=== PATIENT | male | born 1975 | race Caucasian/White ===

== ENCOUNTER → 2019-09-01 07:02 | Outpatient (CLI) | payer MEDICARE, MEDICAID, SELFPAY ==
--- NOTE | 2019-09-01 | CA_ITS ---
APPROVED REPORT Exam: Exercise Treadmill Technologist: Mariely Virk Ht: 6 ft 2 in Wt: 276 lbs BSA: 2.49 m2 HR: 85 bpm BP: 144/103 mmHg Indications: Chest pain, HTN Medical History Medications: Omeprazole,,,,, Pravastatin,,,,, Lyrica,,,,, Zoloft,,,,, Tramadol,,,,, BuspAR,,,,, NiACIN,,,,, ZYprexa,,,,, Elavil,,,,, Stress Test Details Test: Sandeep HR Resting HR: 95 bpm Max Heart Rate (APMHR): 174 bpm Max HR Achieved: 164 bpm Target HR (85% APMHR): 147 bpm % of APMHR: 94 Recovery HR: 118 bpm BP Resting BP: 144.0/103.0 mmHg Max BP: 242.0/117.0 mmHg Recovery BP: 169.0/121.0 mmHg ECG Clinical Exercise duration: 06:00 min Highest Stage Achieved: Exercise capacity: 7.0 METs Stress ECG Conclusion Resting ECG: Normal sinus rhythm Patient exercised 6:00 on Sandeep Protocol. Test stopped due to shortness of air, leg fatigue. Symptoms: No chest pain Arrhythmias/Ectopy: Rare PVC ST-T Changes: Normal ST response to exercise Conclusion: No chest pain or ischemic EKG changes. High blood pressure (did not take blood pressure medication today). Myoview images reported separately. Test Summary REST . . . . . . . Sitting REST . . . . . . . Standing REST 03:24 0.0 0.0 95 . 144/103 . . Stage 1 01:00 10.0 1.7 118 . . . . Stage 1 02:00 10.0 1.7 130 . . . . Stage 1 03:00 10.0 1.7 138 . 196/100 . . Stage 2 01:00 12.0 2.5 146 . . . . Stage 2 . . . . . . . Myoview Injected Stage 2 02:00 12.0 2.5 155 . . . . Stage 2 03:00 12.0 2.5 160 . 195/106 . Stop exercise at 06:00 RECOVERY 01:00 0.0 0.0 159 . . . . RECOVERY 02:00 0.0 0.0 142 . . . . RECOVERY 03:00 0.0 0.0 129 . 242/117 . . RECOVERY 04:00 0.0 0.0 126 . 242/117 . . RECOVERY 05:00 0.0 0.0 118 . 220/115 . . RECOVERY 06:00 0.0 0.0 119 . 207/113 . . RECOVERY 07:00 0.0 0.0 118 . 207/113 . . RECOVERY 08:00 0.0 0.0 117 . 169/121 . . RECOVERY 09:00 0.0 0.0 119 . 188/116 . . RECOVERY 10:00 0.0 0.0 115 . 188/116 . . RECOVERY 11:00 0.0 0.0 117 . 188/116 . . RECOVERY 12:00 0.0 0.0 116 . 162/119 . . RECOVERY 13:00 0.0 0.0 116 . 162/119 . . RECOVERY 14:00 0.0 0.0 112 . 162/119 . . RECOVERY 15:00 0.0 0.0 115 . 162/119 . . RECOVERY 16:00 0.0 0.0 108 . 162/127 . . RECOVERY 17:00 0.0 0.0 115 . 140/ 90 . . RECOVERY 17:04 0.0 0.0 115 . 140/ 90 . . Electronically signed by : Saran Avalos, 09/01/2019 21:57:28
--- NOTE | 2019-09-01 07:33 | NM_ITS ---
APPROVED REPORT Exam: Nuclear Stress Test Indication: Chest pain, SOB, HTN, High cholesterol, Tobacco use, Family history Patient Location: Outpatient Stress Tech: Mariely Virk PA Tech:Gail Montalvo, ARRT, RT (R)(N) Ht: 6 ft 2 in Wt: 276 lbs HR: 85 bpm BP: 144/103 mmHg BSA: 2.49 m2 BMI: 35.4 History: Chest pain, SOB, HTN, High cholesterol, Tobacco use, Family history Procedure: Patient exercised on Sandeep protocol 6:00 minutes and sec, resting heart rate 85 bpm, resting blood pressure 144/103 mmHg, with exercise maximum heart rate achived was 164 bpm which is Greater than 85 % of the maximum predicted heart rate and blood pressure was 242/117 mmHg. Test was stopped due to SOA and leg fatigue. Patient denied any complaint of chest pain. Patient has Adequate exercise capacity, achieved 7.0 METs of workload on treadmill, the blood pressure response to exercise was Hypertensive. Electrocardiogram Resting electrocardiogram showed sinus rhythm, with exercise there is less than 1.[address] segment depression noted from the baseline EKG. The EKG portion of the exercise Myoview is negative for ischemia. Cardiac Stress and Resting SPECT Images: Cardiac Stress and Resting SPECT images were obtained using technetium 99m Myoview 32.6 mCi stress and 10.13 mCi at rest. Gated SPECT for analysis of segmental wall motion and calculation of the ejection fraction also done. Cardiac stress and resting SPECT images show uniform myocardial activity without segmental perfusion abnormality, computer derived ejection fraction is 57% with no regional wall motion abnormality, right ventricle is normal size and contractility. Conclusion: 1. The EKG portion of the exercise Myoview is negative for ischemia, patient has adequate exercise capacity achieved 7 mets of workload on treadmill, the blood pressure response to exercise was hypertensive, there was no exercise-induced chest discomfort. 2. No scintigraphic evidence of reversible ischemia seen at this level of exercise, computer derived ejection fraction 57% with no regional wall motion abnormality, right ventricle is normal size and contractility. 3. Normal exercise Myoview study except for hypertensive blood pressure response with exercise. Electronically signed by : Saran Avalos, 09/01/2019 22:00:02
== END ==
PROVIDERS: PCP Internal Medicine Adolescent Medicine; Visit Provider Internal Medicine Adolescent Medicine
DX: R07.9 Chest pain, unspecified (principal); I10 Essential (primary) hypertension
CPT/HCPCS: 78452; 93017; A9502

== ENCOUNTER 2020-04-20 16:07 | Emergency (ER) | payer MEDICARE, MEDICAID, SELFPAY ==
[2020-04-20 16:07] VITALS: BP 131/98; PULSE 114; RESP 18; TEMP 36.9; O2SAT 95; BMI 34.0
--- NOTE | 2020-04-20 16:13 | HMH.EDGENADL ---
ED Disposition Clinical Impression: Knee pain, right Qualifiers: Chronicity: acute Qualified Code(s): M25.561 - Pain in right knee Disposition: Home, Self-Care Condition on Discharge: Good Referrals: Yomi Jamison MD [Primary Care Provider] - - Critical Care Critical Care Time: No Attestation: On , the high probability of a clinically significant, sudden or life threatening deterioration of the following system(s) required my full and direct attention, intervention and personal management. The time I documented below is in addition to time spent performing reported procedures but includes the following listed in this critical care notation. Medical Decision Making - Medical Records Medical records reviewed: Yes: I reviewed the patient's medical records. - Jose Inquiry Pt receiving controlled substance: No Vital Signs: 04/20/20 16:07 Temperature 98.4 F Temperature Source Oral Pulse Rate [Right Radial] 114 H Respiratory Rate 18 Blood Pressure [Right Arm] 131/98 H Blood Pressure Mean [Right Arm] 109 Blood Pressure Source [Right Arm] Automatic Cuff Blood Pressure Position [Right Arm] Sitting 02 Sat by Pulse Oximetry 95 Oxygen Delivery Method Room Air Orders (Tests/Meds): ORDERS Category Date Time Status Knee XR right 3 views [XR knee RT 3V] Stat Exams 04/20/20 16:14 Taken - Radiology Data #1 Image(s): Knee Image Reviewed: Yes I reviewed the patient's radiology image No fracture, normal alignment. No acute process identified. Medical Decision Narrative: 44yo M evaluated for right knee pain. Patient is in no acute distress on initial presentation but does have difficulty with weightbearing. Differential diagnosis includes was not limited to: Severe arthritis, fracture, dislocation, meniscal injury, osteochondral defect, ligamentous rupture. Due to pain, the patient is unable to complete full exam. He is able to passively fully flex and fully extend the joint. Discussed with the patient he may have a meniscal tear that makes it difficult to range his joint at times. Patient be placed in a knee immobilizer and provided crutches. He is instructed to follow-up with his PCP versus orthopedics. He will need further imaging and evaluation. General Adult HPI - General Stated complaint: Knee pain Time Seen by Provider: 04/20/20 16:14 Mode of Arrival: Ambulatory Source of Information: Patient - History of Present Illness HPI narrative: 44yo M with past medical history significant for bad knees presents the emergency department with right knee pain. Patient reports his knee locked twice yesterday and popped. He states this is normal. However this time, he is unable to bear weight. He denies any previous trauma or significant injury to the right knee. He denies previous surgery. Denies any other signs or symptoms of acute illness. - Related Data Allergies Allergy/AdvReac Type Severity Reaction Status Date / Time ketorolac [From TORADOL] Allergy Mild I-RASH Unverified 02/26/17 15:10 [facility] History - Hepatitis A Screen Drug use history?: No Attestation statement:: This patient has been screened for Hepatitis A risk factors. I have reviewed the patient's past medical history: Yes Other Medical History: Reports: Arthritis ROS Obtained: Yes All systems reviewed & no additional complaints Physical Exam - General General appearance: alert, in no apparent distress - Head Head exam: atraumatic, normocephalic, normal inspection - Eye Eye exam: Present: normal appearance - Neck Neck exam: Present: normal inspection - Respiratory Respiratory exam: Present: normal lung sounds bilaterally - Cardiovascular Cardiovascular exam: Present: regular rate, normal rhythm. Absent: JVD - Abdominal Exam Abdominal exam: Present: soft, normal bowel sounds. Absent: distention, tenderness, guarding - Extremities Exam Extremities exam: Present: normal inspection, tende
--- NOTE | 2020-04-20 16:14 | XR_ITS ---
PROCEDURE: XR KNEE RT 3V CLINICAL INDICATION: pain COMPARISON: No exams were available for comparison FINDINGS: No fracture or dislocation. No lytic or blastic change. There is normal mineralization. There are mild tricompartmental osteoarthritic changes. Other findings:None. IMPRESSION: Mild osteoarthritis Dictated by: Toro Cavazos MD 04/20/2020 19:55 Toro Cavazos MD in [place] 04/20/2020 19:55
[2020-04-20 17:35] VITALS: BP 125/78; PULSE 109; RESP 20; TEMP 36.9; O2SAT 98
== END 2020-04-20 18:18 | disposition home or self-care (01) ==
PROVIDERS: Emergency Provider Family Medicine; PCP Family Medicine
DX: M25.561 Pain in right knee (principal)
CPT/HCPCS: 29505; 73562; 99283

== ENCOUNTER → 2020-07-26 08:35 | Outpatient (CLI) | payer MEDICARE, MEDICAID, SELFPAY ==
--- NOTE | 2020-07-26 08:35 | MR_ITS ---
PROCEDURE: MR KNEE RT WO CON CLINICAL INDICATION: evaluate for mensical tear Right lateral knee pain and swelling COMPARISON: CR XR KNEE RT 3V from 04/20/2020 TECHNIQUE: Routine multiplanar multi echo sequences are performed without gadolinium enhancement. FINDINGS: Cruciate ligaments appear intact. Collateral ligaments have an unremarkable appearance. Small amount of bone marrow edema is present along the lateral tibial plateau laterally and posteriorly. There is a small knee joint effusion. There is an irregular horizontal tear involving the anterior horn of the lateral meniscus. The posterior horn of the lateral meniscus is missing from its normal location and is flipped medially lying along the lateral aspect and inferior aspect the anterior cruciate ligament consistent with a bucket-handle tear with flipped meniscus. There is a horizontal tear involving the posterior horn of the medial meniscus extending anteriorly to the body. The anterior horn of the medial meniscus appears intact. The patellofemoral ligaments appear intact. There is a minimal amount of bone marrow edema involving the mid aspect of the patella posteriorly. IMPRESSION: 1. Irregular horizontal tear of the anterior horn of the lateral meniscus 2. Bucket-handle tear of the posterior horn of the lateral meniscus with flipped meniscal fragment lying the lateral to the anterior cruciate ligament 3. Horizontal tear of the posterior horn of the medial meniscus 4. Small knee joint effusion Dictated by: Toro Cavazos MD 07/27/2020 09:03 Toro Cavazos MD in [place] 07/27/2020 09:03
== END ==
PROVIDERS: PCP Family Medicine; Visit Provider Orthopaedic Surgery
DX: M25.561 Pain in right knee (principal)
CPT/HCPCS: 73721

== ENCOUNTER → 2020-08-02 08:35 | Outpatient (CLI) | payer MEDICARE, MEDICAID, SELFPAY ==
--- NOTE | 2020-08-02 08:46 | XR_ITS ---
PROCEDURE: XR CHEST 2V CLINICAL HISTORY: PREOP; SURGERY 08/04/20; hypertension, smoker [place] COMPARISON: CR CXR1 CHEST-PORTABLE from 01/15/2015 FINDINGS: The cardiomediastinal silhouette and pulmonary vascularity are within normal limits. The lungs are clear without infiltrates, suspicious nodules, or pleural effusions. No acute bony abnormalities. IMPRESSION: No acute findings. Dictated by: Toro Cavazos MD 08/02/2020 12:36 Toro Cavazos MD in [place] 08/02/2020 12:36
[2020-08-02 09:56] LABS: Basophils # 0.1 K/mm3 (0-0.2); Eosinophils # 0.2 K/mm3 (0.0-0.4); Eosinophils % 1.9 % (0.1-12.0); Hemoglobin 17.1 g/dL (14.1-18.0); Lymphocytes # 3.1 K/mm3 (0.7-4.5); Mean Corpuscular Hemoglobin 29.6 pg (27.0-31.2); Mean Corpuscular Volume 89.8 fl (80-94); Mean Platelet Volume 7.4 fl (7.4-10.4); Monocytes # 0.8 K/mm3 (0.1-1.0); Neutrophils # 6.9 K/mm3 (1.8-7.8); Neutrophils % 62.1 % (37.0-80.0); Platelet Count 353 K/mm3 (142-424); Red Blood Count 5.79 M/mm3 (4.60-6.20); Red Cell Distribution Width 14.1 % (11.5-17.5); White Blood Count 11.1 K/mm3 (4.8-10.8)
[2020-08-02 10:09] LABS: Chloride 100 mmol/L (98-107); Potassium 4.3 mmoL/L (3.5-5.1); Sodium 142 mmol/L (136-145)
[2020-08-02 10:12] LABS: Alanine Aminotransferase 85 U/L (12-78); Albumin Level 5.6 g/dl (3.5-5.0); Albumin/Globulin Ratio 1.7 (1.1-1.8); Alkaline Phosphatase 104 U/L (38-126); Anion Gap 19.3 mEq/L (5-15); Aspartate Amino Transferase 58 U/L (17-59); Bilirubin,Total 0.5 mg/dl (0.2-1.3); Blood Urea Nitrogen 10 mg/dl (9-20); Calcium 10.1 mg/dl (8.4-10.2); Carbon Dioxide 27 mmol/L (22.0-30.0); Estimated Glomerular Filt Rate 104 ml/min (>60); GFR (African American) 125 ML/MIN (>60); Globulin 3.3 g/dL (1.3-3.2); Glucose 103 mg/dl (74-100); Total Protein,Serum 8.9 g/dl (6.3-8.2)
== END ==
PROVIDERS: Visit Provider Orthopaedic Surgery
DX: Z01.818 Encounter for other preprocedural examination (principal); Z11.52 Encounter for screening for COVID-19; M25.561 Pain in right knee; G89.29 Other chronic pain; S89.91XD Unspecified injury of right lower leg, subsequent encounter; M23.91 Unspecified internal derangement of right knee
CPT/HCPCS: 36415; 71046; 80053; 85025; U0003

== ENCOUNTER 2020-08-04 06:27 | Day surgery (SDC) | payer MEDICARE, MEDICAID, SELFPAY ==
[2020-08-03 10:35] VITALS: BMI 34.4
[2020-08-04] VITALS (14 sets, daily range): BP systolic 121–144; BP diastolic 74–104; PULSE 95–108; RESP 12–18; TEMP 36.1–42.7; O2SAT 92–97
--- NOTE | 2020-08-04 08:37 | P.PN_ITS ---
[facility] Anesthesia Checklist - Structural Data Admitted From: Home Planned Operative Procedure/s: r knee arthroscopy Consent for Planned Operative Procedure(s) Verified: Yes - Additional verifications Anesthesia Reactions: No Hx Blood Transfusions: No Blood Transfusion Reaction: No - Airway Assessment C-Spine Mobility Assessed: Yes TMJ Mobility Assessed: Yes Dentition: Poor Dentition - Neurological Assessment Level of Consciousness: Awake, Alert, Appropriate - Anesthesia Plan Anesthesia Risk discussed: Yes Anesthesia Plan: Verified ASA Class: II Anesthesia Type: General w/block [facility] History I have reviewed the patient's past medical history: Yes Medical History: Reports:: Anxiety, Depression, Gastroesophageal Reflux Disease(GERD), Hypertension, Seizures (LAST SEIZURE 6 YEARS AGO) Denies:: Cancer, Diabetes Mellitus Type 1, Diabetes Mellitus Type 2, Internal Pacemaker, MRSA *Have you ever received a pneumonia vaccine?: No *Have you received a flu vaccine this season?: Yes Other Medical History: Reports: Arthritis. Denies: Blood Transfusion Reaction Anesthesia experience/problems:: none Laterality Cases: Right: Other Other Surgeries: No: Pacemaker Amputation: No Fractures: No - *Social History Last grade of school completed: GED Smoking Status: Current every day smoker Tobacco Type: cigarettes # Packs/Day (cigarettes): 1 Alcohol Intake: never Substance Use Type: marijuana, crack/cocaine *Occupational Status:: disabled Housing: house Household Members: family *Travel in the last 8 weeks: None - Psychiatric History Pschychiatric History:: Reports:: Anxiety, Depression Family Hx:: Cancer, Heart Attack, Stroke
--- NOTE | 2020-08-04 10:18 | P.PN_ITS ---
[facility] Anesthesia Record Part I Intake, IV Amount: 1,500 Estimated blood loss (mL): 0 Urine output (mL): 0 Blood Pressure: 139/74 SaO2: 95 Pulse Rate: 108 Respiratory Rate: 12 Temperature: 98 F Patient is:: Awake, Stable Stable to PACU at:: 10:15
--- NOTE | 2020-08-04 11:04 | PC.NURSE ---
1042-detailed report called to ILYA Pollack 1045-pt transported to post op via stretcher w/betsy rails up and left in care of ILYA Pollack with bed locked in lowest position, vss, pt stable
--- NOTE | 2020-08-04 11:45 | SUR.PHASEII ---
PT SAYS HE WANTS TO GO HOME AND IS OK WITHOUT ANY PAIN MEDICATION. VSS, NO DISTRESS NOTED.
--- NOTE | 2020-08-04 12:00 | HMH.ANESII ---
[facility] Anesthesia Record Part II Discharge Time: 10:45 Destination: [facility] PACU nurse assessment reviewed?: Yes Patient Condition:: Good Anesthesia Complications:: None Swallowing reflex intact?: Yes Cyanosis?: No Blood Pressure: 126/80 Pulse Rate: 105 Temperature: 97.6 F Mental Status: Alert & Oriented Pain level:: 7 Nausea and/or vomitting:: None Intake, IV Amount: 1,500
--- NOTE | 2020-08-04 19:11 | HMH.OPNOTE ---
Date of procedure: 08/04/20 Pre-op Diagnosis:: 1. Chronic pain, right knee 2. Injury, right knee 3. Locked knee, right knee 4. Bucket-handle tear of lateral meniscus, right knee 5. Medial meniscal tear, right knee 6. Primary osteoarthritis, right knee Post-op Diagnosis:: Same Procedure performed:: 1. Examination of right knee under anesthesia 2. Partial medial meniscectomy, right knee 3. Partial lateral meniscectomy, right knee 3. Chondroplasty, right knee 4. Resection of medial plica, right knee Surgeon:: Benton Fitzgerald MD Nascar Driver(s):: Elisa Henry OIL AND GAS PRINCIPAL:: Reji Duckworth Anesthesia: GETA, regional (Femoral nerve block) Estimated blood loss (mL): 2 Clinical Note:: The patient is a 45-year-old male with chronic RIGHT knee pain unresponsive to conservative management and evidence of a bucket-handle tear of the lateral meniscus, horizontal tear of the medial meniscus and early arthritic changes on imaging. Clinically he also has a locked knee with lack of full extension. His symptoms and clinical findings are consistent with the above diagnosis. Resection of the torn medial and lateral meniscus, chondroplasty and debridement is indicated to relieve the pain and improve function of the knee. Please refer to my office notes for full details. Operative findings:: Examination of the right knee under anesthesia, showed a stable knee joint. There is small amount of knee joint effusion. Knee range of motion is from 10-120? of flexion. Operative findings showed diffuse grade 2-3 degenerative changes over the patellar articular surface and over the medial femoral condyle. Grade 2 changes were noted over the trochlea. The lateral compartment was relatively well preserved. A fairly large thickened and hyperemic medial plica was noted and its corresponding abrasion area on the medial femoral condyle noted as well. The medial and lateral menisci had a complex degenerative tear involving the body and posterior horn. The medial tibial plateau articular surface was well preserved. The anterior cruciate ligament and posterior cruciate ligaments were intact. No loose bodies were noted. Moderate synovitis was noted in the knee. Operative note:: On the day of the procedure the patient was met in the preoperative area and positively identified. A physical examination was performed and documented. The operative site and side was marked and initialed by me. I again discussed the diagnosis, management options including both nonsurgical and surgical. I discussed the proposed surgical procedure, risks and benefits and alternatives in detail. The complications discussed include but are not limited to infection, injury to nerves and blood vessels, injury to the ligaments and tendons, knee stiffness, arthrofibrosis, incomplete relief, incomplete functional recovery, DVT, PE, CRPS, complications related to anesthesia including heart attack, stroke and even . I have also discussed about the likely need for further surgery in future. I told him that there were no guarantees with surgery; he could be no better or even worse. We also discussed the postoperative recovery and rehabilitation protocol. I believe the patient to be well informed with regard to the proposed surgery. I told him that it would take few months for full recovery of the knee after surgery. He expressed a full understanding and wished to proceed with the planned surgery. Patient understood the risks, agreed to proceed with surgery, and no guarantees or assurances were given or implied. Patient was brought to the operating room and placed supine on the operating table. All the bony prominences were appropriately padded. A general anesthesia was administered by the word processing supervisor. A well-padded tourniquet cuff was placed over the right upper thigh. Examination of the right knee under anesthesia was performed. A small knee effusion was noted. Knee range of motion was 10-120 degrees of flexion. Knee joint is noted to b
== END 2020-08-04 11:46 | disposition home or self-care (01) ==
LOC: OR 06:29
PROVIDERS: PCP Family Medicine; Visit Provider Orthopaedic Surgery
PROC: (CPT 29870; principal; 2020-08-04 09:00)
DX: M23.203 Derangement of unspecified medial meniscus due to old tear or injury, right knee (principal); M23.261 Derangement of other lateral meniscus due to old tear or injury, right knee; M23.251 Derangement of posterior horn of lateral meniscus due to old tear or injury, right knee; Z79.899 Other long term (current) drug therapy
CPT/HCPCS: 29880; 96374; J2405

== ENCOUNTER → 2021-03-02 08:53 | Outpatient (CLI) | payer MEDICARE, MEDICAID, SELFPAY ==
--- NOTE | 2021-03-02 08:55 | XR_ITS ---
PROCEDURE: XR KNEE RT 4V CLINICAL INDICATION: right knee pain; scope on 08/04/20 COMPARISON: CR XR KNEE RT 3V from 04/20/2020 FINDINGS: No fracture or dislocation. No lytic or blastic change. There is normal mineralization. There are mild tricompartmental osteoarthritic changes . There may be a small suprapatellar effusion. Superior enthesophyte noted at the patella. Other findings:None. IMPRESSION: Mild osteoarthritis of the right knee Dictated by: Toro Cavazos MD 03/02/2021 12:18 Toro Cavazos MD in [place] 03/02/2021 12:18
== END ==
PROVIDERS: PCP Emergency Medicine; Visit Provider Orthopaedic Surgery
DX: Z09 Encounter for follow-up examination after completed treatment for conditions other than malignant neoplasm (principal); M25.561 Pain in right knee
CPT/HCPCS: 73564

== ENCOUNTER → 2021-05-26 15:04 | Outpatient (CLI) | payer MEDICARE, MEDICAID, SELFPAY ==
[2021-05-26 15:15] LABS: Barbiturates Screen,Urine Negative ng/ml (<200)
[2021-05-26 15:16] LABS: Amphetamine/Metha Screen,Urine Negative ng/ml (<1000); Benzodiazepines Screen,Urine Positive ng/ml (<200)
[2021-05-26 15:17] LABS: Cocaine Screen,Urine Negative ng/ml (<300)
[2021-05-26 15:18] LABS: Cannabinoid Screen,Urine Positive ng/ml (<50); Methadone Screen,Urine Negative ng/ml (<300)
[2021-05-26 15:20] LABS: Opiate Screen,Urine Negative ng/ml (<300); Phencyclidine Screen,Urine Negative ng/ml (<25)
== END ==
PROVIDERS: Visit Provider Emergency Medicine
DX: Z79.899 Other long term (current) drug therapy (principal)
CPT/HCPCS: 80305

== ENCOUNTER → 2021-12-20 14:38 | Outpatient (CLI) | payer MEDICARE, MEDICAID, SELFPAY ==
[2021-12-20 19:15] LABS: Amphetamine/Metha Screen,Urine Negative ng/ml (<1000)
[2021-12-20 19:18] LABS: Barbiturates Screen,Urine Negative ng/ml (<200); Benzodiazepines Screen,Urine Negative ng/ml (<200)
[2021-12-20 19:19] LABS: Cannabinoid Screen,Urine Negative ng/ml (<50)
[2021-12-20 19:20] LABS: Cocaine Screen,Urine Negative ng/ml (<300); Methadone Screen,Urine Negative ng/ml (<300)
[2021-12-20 19:21] LABS: Opiate Screen,Urine Negative ng/ml (<300); Phencyclidine Screen,Urine Negative ng/ml (<25)
== END ==
PROVIDERS: PCP Emergency Medicine; Visit Provider Emergency Medicine
DX: Z79.899 Other long term (current) drug therapy (principal)
CPT/HCPCS: 80305